=== PATIENT | female | born 1965 | race Caucasian/White ===

== ENCOUNTER 2017-04-19 10:23 | Emergency (ER) | payer OTHER ==
[~2017-04-19] VITALS: Ht 149.9 cm; Wt 85.7 kg
--- NOTE | 2017-04-19 11:00 | NUR ---
ASSUME PT CARE. PRESENTS W/ LT WRIST PAIN. WAS AT AN URGENT CARE AND WAS TOLD THAT THEY NEED REDUCTION. SPLINTED. + DEFORMITY. SEEN BY CHELSEA.
--- NOTE | 2017-04-19 11:33 | NUR ---
Patient discharged to home in stable condition. Written and verbal after care instructions given. Patient verbalizes understanding of instruction.
[2017-04-19 11:34] VITALS: BP 145/87
== END 2017-04-19 11:35 | disposition home or self-care (01) ==
LOC: ER 10:27
DX: S52.502A Unspecified fracture of the lower end of left radius, initial encounter for closed fracture (principal); I10 Essential (primary) hypertension; W18.39XA Other fall on same level, initial encounter; Y93.89 Activity, other specified; Y92.89 Other specified places as the place of occurrence of the external cause; Y99.8 Other external cause status
CPT/HCPCS: 29125; 99283; A4606; Z7610